=== PATIENT | male | born 1990 | race Caucasian/White ===

== ENCOUNTER 2025-06-06 06:22 | Emergency (ER) | payer MEDICAID ==
[~2025-06-06] VITALS: Ht 177.8 cm; Wt 85.4 kg
[2025-06-06 06:26] VITALS: TEMP 97
--- NOTE | 2025-06-06 07:03 | Physician Documentation ---
History of Present Illness ~ Chief Complaint: Cough Stated Complaint: LIGHT HEADED,COUGH Time Seen by MD: 07:03 Primary Medical Doctor: Kimberley LUQUE 34-year-old male history of mild persistent asthma presenting for 1 month of cough. He initially had fever and wet cough earlier in the month which has all resolved he has been left with a persistent dry cough and mild shortness of breath. He denies any chest pain. Denies any current fevers. No chills. No abdominal pain no lower extremity edema no lower extremity pain or swelling no history of venous thromboembolism Medication Reconciliation Allergies: Coded Allergies: No Known Allergies (Unverified , 06/06/25) Scheduled Prednisone* (Prednisone*), 3 TAB PO DAILY Scheduled PRN albuterol inhaler (Pro-Air Inhaler), 2 PUFFS INH Q4HPRN PRN for wheezing Durable Medical Equipment Inhaler, Assist Devices (Breatherite Spacer-Adult Mask), EA INH PRN PRN for cough, (DME) Review of Systems All Other Systems at this time: Reviewed and Negative Physical Exam Vital Signs: Temperature: 97.0, Source: Temporal, Heart Rate: 67, Respiratory Rate: 14, BP: 127/56, Pulse Oximetry: 96, Weight: 85.400 Oxygen Flow Rate: 0 Physical Exam Well-appearing no acute distress resting comfortably in bed No JVD moist mucous membranes Lungs clear to auscultation bilaterally no wheezing rhonchi or rales. Occasional dry cough no respiratory distress No murmur Abdomen soft nontender Lower extremity no edema Progress Results/Orders Results/Orders Orders - REID VAUGHN MD Chest,Single View (06/06/25 07:12) Completed Orders - REID VAUGHN MD Chest,Single View (06/06/25 07:12) Vital Signs 06/06/25 06/06/25 06:26 06:37 Temp 97.0 Pulse 67 Resp 18 14 B/P (MAP) 127/56 Pulse Ox 96 O2 Flow Rate 0 EKG/XRAY/CT/US/VASC/MRI Chest X-Ray : Additional Comments Chest x-ray independently interpreted by myself no pneumothorax no consolidation normal cardiomediastinal silhouette Departure Disposition: HOME / SELF CARE / HOMELESS Impression: Primary Impression: Acute bronchitis Qualified Codes: J20.9 - Acute bronchitis, unspecified Additional Impression Text Patient presents with history of mild persistent asthma has now had dry cough for a month after fever and productive cough sounds like viral URI leading to bronchitis and/or mild asthma flare. He is afebrile well-appearing chest x-ray is clear. Refilled his albuterol inhaler which he has not had access to and starting on short course of prednisone Additional Instructions: The prednisone should rapidly improve your symptoms as should the albuterol inhaler. If you develop fever worsening symptoms return to the emergency department. If you do not have complete resolution your symptoms in the next few weeks you should be seen by your primary care physician for reassessment Referrals: NO PRIMARY CARE PROVIDER (PCP) Prescriptions Prednisone* (Prednisone*) 20 Mg Tablet 3 TAB PO DAILY for 5 Days, #15 TAB Prov: REID VAUGHN MD 06/06/25 Inhaler, Assist Devices (Breatherite Spacer-Adult Mask) 1 Each Spacer EA INH PRN PRN for cough, #1 Prov: REID VAUGHN MD 06/06/25 albuterol inhaler (Pro-Air Inhaler) 8.5 Gm Inhaler 2 PUFFS INH Q4HPRN PRN for wheezing for 30 Days, #18 GM Prov: REID VAUGHN MD 06/06/25 Signature Scribe Signature: None Attestation: None REID VAUGHN MD Jun 06, 2025 07:03
[2025-06-06] MEDS ORDERED: INHA1EAC52 INH (07:33)
[2025-06-06] MEDS ORDERED: ALBU8HFA INH (07:33)
[2025-06-06] MEDS ORDERED: PRED20TA PO (07:34)
--- NOTE | 2025-06-06 07:46 | RADIOLOGY REPORT ---
CHEST RADIOGRAPH Indication: cough Technique: Single frontal view of the chest was obtained COMPARISON: None FINDINGS: Lines and Tubes: None Lungs: Clear Pleura: No effusion. No pneumothorax. Cardiomediastinal contours: Unremarkable Bones: Unremarkable IMPRESSION: No acute disease.
[2025-06-06 08:05] VITALS: BP 115/69; PULSE 65; RESP 16; O2SAT 98
== END 2025-06-06 08:06 | disposition home or self-care (01) ==
LOC: ER 06:22
DX: J20.9 Acute bronchitis, unspecified (principal)
CPT/HCPCS: 71045; 99283

== ENCOUNTER 2025-07-31 16:02 | Outpatient (CLI) | payer MEDICAID ==
[~2025-07-31 16:02] MED LIST: INHA1EAC52 INH
--- NOTE | 2025-07-31 17:34 | RADIOLOGY REPORT ---
[facility] EXAM[facility]ATION: MR MRI HEAD INDICATION: HISTORY OF TRAUMATIC HEAD INJURY COMPARISON: None TECHNIQUE: Multiplanar, multisequence magnetic resonance imaging of the brain was performed without the use of intravenous contrast. FINDINGS: No evidence of acute or remote infarct. No intracranial hemorrhage. No mass effect. The ventricles and sulci are normal in size for age. Clear basal cisterns. Flow voids in the major intracranial vessels are maintained. No abnormality of the orbits. There is a tiny polyp versus retention cyst within the right maxillary antrum. There is mild mucosal thickening within the ethmoid air cells. The mastoid air cells are clear. No abnormality of the visualized osseous structures and extracranial soft tissues. IMPRESSION: 1. No acute intracranial abnormality.
== END 2025-07-31 23:59 | disposition home or self-care (01) ==
LOC: MRI02 16:02
PROVIDERS: ATTEND Neuromusculoskeletal Medicine & OMM
DX: Z87.828 Personal history of other (healed) physical injury and trauma (principal)
CPT/HCPCS: 70551